=== PATIENT | male | born 1980 | race African-American/Black ===

== ENCOUNTER 2024-07-17 22:33 | Emergency (ER) | payer OTHER ==
[~2024-07-17] VITALS: Ht 198.1 cm; Wt 137.0 kg
[2024-07-17 22:35] VITALS: O2SAT 98
[2024-07-17 23:37] LABS: CHLORIDE 106 mEq/L (98-107); POTASSIUM 3.4 mEq/L (3.5-5.1); SODIUM 142 mEq/L (136-145)
[2024-07-17 23:38] LABS: CALCIUM 9.3 mg/dL (8.7-10.4); CARBON DIOXIDE 29 mEq/L (21-32)
[2024-07-17] MEDS: AMLODIPINE 5MG TABLET PO NR (23:39)
[2024-07-17 23:40] LABS: D-DIMER 0.4 mg/L FEU (<0.50); PARTIAL THROMBOPLASTIN TIME 25.6 sec (23.4-31.0); PROTHROMBIN TIME 10.7 sec (9.6-11.0)
[2024-07-17 23:43] LABS: GLUCOSE 151 mg/dL (70-105); UREA NITROGEN BLOOD 11 mg/dL (9-23)
[2024-07-18] LABS: BASOPHILS % 0.4 % (0.0-2.0); EOSINOPHILS % 3.3 % (0.0-5.0); HEMATOCRIT. 43.8 % (42.0-52.0); HEMOGLOBIN. 14.5 g/dL (14.0-18.0); LYMPHOCYTES % 51.5 % (20.0-50.0); MEAN CORPUSCULAR HEMOGLOBIN 28.5 pg (28.0-32.0); MEAN CORPUSCULAR HGB CONC 33.1 g/dL (31.0-37.0); MEAN CORPUSCULAR VOLUME 86.2 fL (80.0-94.0); MEAN PLATELET VOLUME 8.9 fl (7.4-10.4); MONOCYTES % 8.2 % (2.0-8.0); NEUTROPHILS % 36.6 % (40.0-76.0); PLATELET 274 x1000/uL (130-400); RED BLOOD CELL COUNT 5.08 mill/uL (4.7-6.1); WHITE BLOOD COUNT 5.9 x1000/uL (4.5-11.0)
[2024-07-18 00:25] LABS: ETHANOL BLOOD < 10 mg/dL (<10); TROPONIN I HIGH SENSITIVITY 55 ng/L (3.0-53)
[2024-07-18] MEDS: ENOXAPARIN 150MG/ML SYR SUBCUT NR (00:44)
[2024-07-18] MEDS ORDERED: ACETAMINOPHEN 325MG TABLET PO PRN (01:45)
[2024-07-18] MEDS ORDERED: ONDANSETRON HCL 4MG/2ML INJ IV PRN (01:45)
[2024-07-18] MEDS ORDERED: ZOLPIDEM TARTRATE 5MG TABLET PO PRN (01:45)
[2024-07-18] MEDS ORDERED: HYDROCODONE/ACETAMINOPHEN 5/325MG TABLET PO PRN (01:45)
[2024-07-18] MEDS ORDERED: IPRATROPIUM/ALBUTEROL 0.5-3(2.5)MG/3ML NEB NEB PRN (01:45)
[2024-07-18] MEDS ORDERED: HYDRALAZINE 20MG/ML VIAL IV PRN (01:45)
[2024-07-18] MEDS ORDERED: MORPHINE SULFATE 2 MG/ML INJ (NOT FOR IM USE) IV PRN (01:45)
[2024-07-18 02:54] LABS: TROPONIN I HIGH SENSITIVITY 50 ng/L (3.0-53)
[2024-07-18] MEDS ORDERED: ENOXAPARIN 30MG/0.3ML SYR SUBCUT SCH (09:00)
[2024-07-18] MEDS ORDERED: PANTOPRAZOLE SODIUM 40 MG/VIAL IV SCH (09:00)
[2024-07-18 10:00] VITALS: BP 145/99; PULSE 60; RESP 16; TEMP 36.6; O2SAT 98
[2024-07-18] MEDS: CLONIDINE 0.1MG TABLET PO PRN (11:18)
== END 2024-07-18 15:26 | disposition home or self-care (01) ==
LOC: ER 22:33 → UNDOADMIN 07-18 00:56 → 3WST 07-18 00:56 → UNDODISIN 07-18 15:26 → ER 07-18 15:26
DX: I21.3 ST elevation (STEMI) myocardial infarction of unspecified site (principal); I10 Essential (primary) hypertension; Z00.00 Encounter for general adult medical examination without abnormal findings
CPT/HCPCS: 80048; 80320; 83880; 85025; 85379; 85610; 85730; 84484 ×2; 71045; 93005; 99285; 36415; 93970; 96372; J1650; G0480